=== PATIENT | female | born 1950 | race Caucasian/White ===

== ENCOUNTER → 2017-07-12 | Outpatient (CLI) | payer MEDICARE | END | disposition home or self-care (01) | LOC: PCVCCLINIC 13:30 | PROVIDERS: ATTEND Internal Medicine | DX: R07.9 Chest pain, unspecified (principal); R00.2 Palpitations; E78.5 Hyperlipidemia, unspecified; Z79.899 Other long term (current) drug therapy; Z87.898 Personal history of other specified conditions | CPT/HCPCS: 93005; G0463 ==

== ENCOUNTER → 2017-07-15 | Outpatient (CLI) | payer MEDICARE ==
[~2017-07-15] MED LIST: REGADENOSON 0.4 MG/5 ML DISP.SYRIN. IV ONE
--- NOTE | 2017-07-16 09:32 | PCVCIMAG ---
APPROVED REPORT Study performed: 07/15/2017 08:00:28 EXAM: Comprehensive 2D, Doppler, and color-flow Echocardiogram Patient Location: Echo lab Status: routine BSA: 1.98 HR: 56 bpmBP: 140/90 mmHg Rhythm: NSR Other Information Study Quality: Good Indications Dizziness and Vertigo Palpitations Hyperlipidemia 2D Dimensions LVEF(%): 64.70 (>50%) IVSd: 10.94 (7-11mm)LVOT Diam: 18.02 (18-24mm) LVDd: 48.83 mm PWd: 7.32 (7-11mm)Ascending Ao: 26.97 (22-36mm) LVDs: 31.53 (25-40mm) Left Atrium: 39.40 (27-40mm) Aortic Root: 24.33 mm LV Single Plane 4CH: 56.10 % LV Single Plane 2CH: 65.91 %Joseph's LVEF: 61.01 % Biplane EF: 62.9 % Volumes Left Atrial Volume (Systole) Single Plane 4CH: 49.78 mLSingle Plane 2CH: 45.93 mL LA ESV Index: 25.00 mL/m2 Aortic Valve AoV Peak Thaddeus.: 1.66 m/s AO Peak Gr.: 10.98 mmHgLVOT Max P.04 mmHg LVOT Max V: 1.23 m/s MARIA GUADALUPE Vmax: 1.89 cm2 AI Vmax: 5.16 m/s AI Dade: 2.83 m/s2 AI PHT: 528.73 ms Mitral Valve E/A Ratio: 0.9 MV Decel. Time: 245.71 ms MV E Max Thaddeus.: 0.69 m/s MV A Thaddeus.: 0.80 m/s IVRT: 103.81 ms TDI E/Lateral E': 6.90E/Medial E': 9.86 Medial E' Thaddeus.: 0.07 m/s Lateral E' Thaddeus.: 0.10 m/s Pulmonary Valve PV Peak Gr.: 1.42 mmHg Pulmonary Vein P Vein S: 0.75 m/sP Vein A: 0.31 m/s P Vein D: 0.43 m/sP Vein A Dur.: 83.0 msec P Vein S/D Ratio: 1.74 Tricuspid Valve TR Peak Thaddeus.: 2.39 m/s TR Peak Gr.: 22.90 mmHg Left Ventricle The left ventricle is normal size. There is normal LV segmental wall motion. There is normal left ventricular wall thickness. Left ventricular systolic function is normal. The left ventricular ejection fraction is within the normal range. LVEF is 55-60%. The left ventricular diastolic function is normal. Right Ventricle The right ventricle is normal size. The right ventricular systolic function is normal. Atria The left atrium size is normal. The right atrium size is normal. Aortic Valve The aortic valve is normal in structure. Mild aortic regurgitation. There is no aortic valvular stenosis. Mitral Valve The mitral valve is normal in structure. Mild mitral regurgitation. No evidence of mitral valve stenosis. Tricuspid Valve The tricuspid valve is normal in structure. Mild tricuspid regurgitation. Pulmonary artery pressure is 30mmhg. Pulmonic Valve The pulmonary valve is normal in structure. There is no pulmonic valvular regurgitation. Great Vessels The aortic root is normal in size. IVC is normal in size and collapses with >50% inspiration Pericardium There is no pericardial effusion. <Conclusion> The left ventricle is normal size. LVEF is 55-60%. The aortic valve is normal in structure. Mild aortic regurgitation. The mitral valve is normal in structure. Mild mitral regurgitation. The tricuspid valve is normal in structure. Mild tricuspid regurgitation. Pulmonary artery pressure is 30mmhg. The pulmonary valve is normal in structure. There is no pulmonic valvular regurgitation. There is no pericardial effusion.
--- NOTE | 2017-07-16 11:21 | PCVCIMAG ---
APPROVED REPORT Exam: Nuclear Stress Test Indication: CHEST PAIN, NEAR SYNCOPE, PALPITATIONS Patient Location: Out-Patient Stress Nurse: Kaye Jiménez RN, LUL Delarosa Tech:Genoveva Euceda [facility] Ht: 5 ft 6 in Wt: 195 lbs BSA: 1.98 m2 HR: 64 bpm BP: 152/90 mmHg BMI: 31.4 Rhythm: NSR Medical History Medical History: AGE,HYPERLIPIDEMIA Medications: ZOCOR, ALBUTEROL Allergies: NKA Pretest Chest Pain Characteristics: No chest pain Exercise History: Physically active Physical Disabilities: Knees NM EXAM: Myocardial Perfusion REST/STRESS Imaging Protocol: Rest Tc-99m/Stress Tc-99m 1 day Resting Data Rest SPECT myocardial perfusion imaging was performed in supine position 60 minutes following the intravenous injection of 11.1 mCi of Tc-99m Sestamibi. Time of rest injection: 0800 Date: 07/15/2017 Administration Route: IV Administration Site: Right AC Pharmacologic Stress Pharmacologic stress test was performed by injecting Regadenoson 0.4 mg IV push followed by the intravenous injection of 33.1 mCi of Tc-99m Sestamibi. Time of stress injection: 0950 Date: 07/15/2017 Administration Route: IV Administration Site: Right AC The images were gated to evaluate regional wall motion and calculate left ventricular ejection fraction. Study Data Post stress, the left ventricular ejection was 72%.. SSS: 2 SRS: 0 SDS: 2 TID = 0.98. Perfusion There is a small area of moderately reduced uptake in the apical segment of the anterior wall which is seen on the stress images as well as the resting images. This area thickens and moves normally and is most consistent with attenuation artifact. Wall Motion Normal left ventricular wall motion. Nuclear Conclusion 1. Low Risk Study Interpreted by: Moira Lord MD Electronically Approved: 07/16/2017 10:02:58 Stress Test Details Stress Test: Pharmacologic stress was paired with low level exercise. Reason for pharmacologic stress test: physical limitation. HR Resting HR: 64 bpmMax Heart Rate (APMHR): 154 bpm Max HR Achieved: 107 bpmTarget HR (85% APMHR): 130 bpm % of APMHR: 69 Recovery HR: 79 bpm BP Resting BP: 152/90 mmHg Max BP: 138/86 mmHg ECG Resting ECG: Sinus Rhythm Stress ECG: Sinus Tachycardia Recovery ECG: Sinus Rhythm Clinical Reason for Termination: Completed protocol Stress Symptoms: NONE Exercise duration: 4 min 0 sec Exercise capacity: 1.6 METs Symptoms resolved during recovery. Stress ECG Conclusion 1. Adequate response to intravenous Lexiscan 2. Inadequate heart rate for an ECG diagnosis <Conclusion> 1. Adequate response to intravenous Lexiscan 2. Inadequate heart rate for an ECG diagnosis
== END | disposition home or self-care (01) ==
LOC: PCVCIMAG 07:40
PROVIDERS: ATTEND Internal Medicine
DX: I08.3 Combined rheumatic disorders of mitral, aortic and tricuspid valves (principal); R07.9 Chest pain, unspecified; R00.2 Palpitations; E78.5 Hyperlipidemia, unspecified; R42 Dizziness and giddiness; R55 Syncope and collapse
CPT/HCPCS: 78452; 93017; 93306; A9500; J2785